=== PATIENT | female | born 1945 | race Caucasian/White ===

== ENCOUNTER 2016-12-16 05:13 | Day surgery (SDC) | payer MEDICARE, BC ==
[2016-12-15 14:57] LABS: HEMATOCRIT 40.6 % (36.0-48.0); HEMOGLOBIN 13.6 g/dL (12-16); MCH 31.9 pg (26.0-34.0); MCHC 33.5 g/dL (31.0-37.0); MCV 95.3 fL (80.0-100.0); RBC 4.26 10x6/uL (4.00-5.40); RDW 13.8 % (11.5-14.5); WBC 6.7 10x3/uL (4.8-10.8)
[2016-12-15 15:30] LABS: ANION GAP 11.8 mmol/L (8-16); CALCIUM 8.8 mg/dL (8.5-10.1); CARBON DIOXIDE 30.9 mmol/L (21.0-32.0); CREATININE - SERUM 1.2 mg/dL (0.6-1.3); POTASSIUM - SERUM 3.7 mmol/L (3.5-5.1)
[~2016-12-16] VITALS: Ht 152.4 cm; Wt 73.5 kg
--- NOTE | ~2016-12-16 | OP ---
PATIENT NAME: Rosemary AVALOS MEDICAL RECORD: [id number] :49 LOCATION:[facility] ADMISSION DATE: SURGEON: KIMMY HAYS DPM DATE OF OPERATION: 12/16/2016 PREOPERATIVE DIAGNOSES: 1. Plantar plate rupture, right second metatarsophalangeal joint. 2. Hammertoe, right second digit. POSTOPERATIVE DIAGNOSES: 1. Plantar plate rupture, right second metatarsophalangeal joint. 2. Hammertoe, right second digit. PROCEDURES: 1. Yadira osteotomy, right second metatarsal. 2. Plantar plate repair, right second MPJ. 3. PIPJ effusion, right second digit. ANESTHESIA: Local with IV sedation utilizing lidocaine and Marcaine plain around the second ray of the right foot utilizing 10 cc total. HEMOSTASIS: Right thigh tourniquet at 350 mmHg. PREOPERATIVE DETAILS: The patient was taken to the OR, placed on the operating table in a supine position followed by induction of general anesthesia and infiltration of local anesthetic. The right extremity was then prepped and draped in the usual aseptic technique followed by exsanguination of extremity and inflation of tourniquet. PROCEDURE NUMBER ONE: Yadira osteotomy, right second metatarsal. A 15-blade was used to create a curvilinear incision from the distal mid shaft of the second metatarsal distally, curvilinear on top of the PIPJ of the second digit. The incision deepened down through the subcutaneous tissue being sure to avoid all vital structures. A dissection was carried down to the extensor longus tendon, which was transected in a Z fashion, freeing the dorsal aspect of the second MPJ. A linear capsulotomy was performed. The joint was delivered. A McGlamry scoop elevator was used to free the plantar structures. At this time, utilizing a sagittal saw from dorsal distal to plantar proximal, a cut was made through the distal shaft of the second metatarsal. The capital fragment was moved proximally and temporarily fixated with a K-wire. PROCEDURE NUMBER TWO: Plantar plate repair, right second digit. A second K-wire was placed in the mid shaft of the proximal phalanx of the second digit, wire retractor was placed over both K-wires and the joint was distracted. There was noted to be a significant tear along the plantar plate. Approximately 2/3 of the plate was torn free from the base of the proximal phalanx. A 15 blade was used to complete the tear. A scorpion passer was used to pass FiberWire through the plantar plate. Two small drill holes were made in the base of proximal phalanx of the second digit and the FiberWire was pulled out through the holes in the proximal phalanx. At this time, the temporary fixation or distracting wires were removed. The second metatarsal head was then placed back in its proper position and 2 pop-off screws were used to fixate the Yadira osteotomy completing procedure. At this time, the surgeon's knots were used to tighten the plantar plate, holding the digit in a slightly plantarflexed position. Once the surgeon's knots were secured, it was noted that the second OPERATIVE REPORT [id number] Rosemary AVALOS MPJ was in an excellent position and very stable. PROCEDURE NUMBER THREE: PIPJ effusion, right second digit. Utilizing the incision as described in #1. The extensor longus tendon was freed from the dorsal aspect of the PIPJ. A sagittal saw was used to resect the joint of the PIPJ. Drill holes were made to accommodate the bone graft and the bone graft was placed in the deficit with the capital fragment or the middle phalanx being placed on top of the bone graft and compressed, compressing the fusion site, noting excellent alignment as well as fixation. The wound was flushed. The second MPJ capsule was repaired with 2-0 Vicryl. The extensor longus tendon was repaired with 4-0 Rapide and the subcutaneous tissue was reapproximated with 4-0 Rapide. The skin was then closed with 4-0 Rapide in a subcuticular technique followed by Dermabond, Adaptic, 4 x 4 and Conform were used to dress the wound followed by modified Alcaraz compression dressing. The tourniquet was deflated. POSTOPERATIVE DETAILS: The patient tolerated the procedure well and left the OR with vital signs stable and vascular status at preoperative levels. The patient was transported to recovery per anesthesia in stable condition. TRANSINT:[id number] Voice Confirmation ID: [id number] DOCUMENT ID: [id number] KIMMY HAYS DPM CC: [id number] DICTATION DATE: 12/16/1644 [employer]: 12/16/16 1235 [facility] 12/16/16 [facility] [address] [place] [place] [address]
[~2016-12-16 05:13] MED LIST: CALTRATE 600 M600 M1 PO; CYMBALTA60 MG PO; ESTRACE 0.5 MG0.5 MG PO; FOLIC ACID1 MG PO; HYDROCODONE-APA1 TAB PO; HYZAAR 100-25 T1 TAB PO; KEFLEX500 MG PO; MEDROL4 MG PO; METHOTREXATE2.5 MG; NEURONTIN 300300 MG PO; OMEPRAZOLE40 MG PO; PLAQUENIL200 MG PO; VITAMIN D31000 UNIT PO; XANAX0.5 MG PO
[2016-12-16 06:57] VITALS: BP 121/78; Ht 152.4 cm; Wt 73.5 kg
== END 2016-12-16 11:05 | disposition home or self-care (01) ==
LOC: D.OPS 05:13 → D.PAN 07:30 → D.OPS 08:00
PROVIDERS: Anesthesiology
DX: S93.524A Sprain of metatarsophalangeal joint of right lesser toe(s), initial encounter (principal); M20.41 Other hammer toe(s) (acquired), right foot; Z01.812 Encounter for preprocedural laboratory examination